=== PATIENT | female | born 1945 | race Caucasian/White ===

== ENCOUNTER → 2016-09-07 | Outpatient (CLI) | payer OTHER ==
[~2016-09-07] MED LIST: AMLO5TAB2 PO; ATEN50TA41 PO; CLON0.3T PO; CYCL-259 PO; DOXY100T PO; DULO60CA7 PO; OMNIPAQUE 350 MG/ML, 100ML BOTTLE ONE; ONDA4TAB10 PO; OXYC5TAB3 PO; SIMV20TA3 PO; VALS160T3 PO
== END | disposition home or self-care (01) ==
LOC: CFH 09:15
PROVIDERS: ATTEND Family Medicine
DX: K76.0 Fatty (change of) liver, not elsewhere classified (principal); R91.8 Other nonspecific abnormal finding of lung field; M51.36 Other intervertebral disc degeneration, lumbar region; Z90.49 Acquired absence of other specified parts of digestive tract; Z98.890 Other specified postprocedural states
CPT/HCPCS: 74177; Q9967

== ENCOUNTER → 2017-03-25 | Outpatient (CLI) | payer OTHER ==
[~2017-03-25] MED LIST changes: -CLON0.3T PO; +CLON0.3T47 PO; +HYDR-882 PO; +METO50TA4 PO; +OMEP-110 PO; -OMNIPAQUE 350 MG/ML, 100ML BOTTLE ONE; +VALS1TAB24 PO; +VILA40TA PO; +ZOLP5TAB6 PO
== END | disposition home or self-care (01) ==
LOC: CFH 10:52
PROVIDERS: ATTEND Family Medicine
DX: R22.9 Localized swelling, mass and lump, unspecified (principal)

== ENCOUNTER 2017-03-29 17:57 | Inpatient (IN) | payer OTHER, MEDICARE ==
[~2017-03-29] VITALS: Ht 152.4 cm; Wt 63.8 kg
[~2017-03-29 17:57] MED LIST changes: -HYDR-882 PO; -METO50TA4 PO; -OMEP-110 PO; -VALS1TAB24 PO; -VILA40TA PO; -ZOLP5TAB6 PO
[2017-03-29] MEDS ORDERED: SODIUM CHLORIDE FLUSH 10ML SYR IVF ONE (18:00)
[2017-03-29] MEDS ORDERED: SODIUM CHLORIDE 0.9% 1,000ML IVBOLUS ONE (18:00)
[2017-03-29 18:19] LABS: HEMATOCRIT 35.6 % (34.6-47.8)
[2017-03-29] MEDS ORDERED: PLEASE ENTER HEIGHT AND WEIGHT MC SCH (18:30)
[2017-03-29 18:32] LABS: ASPARTATE AMINO TRANSFERASE 21 U/L (15-37); BLOOD UREA NITROGEN 33 mg/dL (7-18)
[2017-03-29 18:37] LABS: IS PT STATUS REG ER OR PRE ER? YES
[2017-03-29] MEDS ORDERED: ZOLP5TAB6 PO (18:47)
[2017-03-29] MEDS ORDERED: VALS1TAB24 PO (18:47)
[2017-03-29] MEDS ORDERED: METO50TA4 PO (18:47)
[2017-03-29] MEDS ORDERED: VILA40TA PO (18:47)
[2017-03-29] MEDS ORDERED: OMEP-110 PO (18:47)
[2017-03-29] MEDS ORDERED: HYDR-882 PO (18:47)
[2017-03-29] MEDS ORDERED: SODIUM CHLORIDE 0.9%, 500ML IVBOLUS ONE (19:00)
[2017-03-29] MEDS ORDERED: SODIUM CHLORIDE 0.9% 1,000 ML IV SCH (19:54)
[2017-03-29] MEDS ORDERED: ACETAMINOPHEN 325 MG TABLET PO PRN (20:00)
[2017-03-29] MEDS ORDERED: DOCUSATE 100 MG CAPSULE PO PRN (20:00)
[2017-03-29] MEDS ORDERED: HYDROcodone/APAP 5/325 TABLET PO PRN (20:00)
[2017-03-29] MEDS ORDERED: MORPHINE SULFATE 4 MG/ML, 1ML IVPush PRN (20:00)
[2017-03-29] MEDS ORDERED: POLYETHYLENE GLYCOL 17 GM PACKET PO PRN (20:00)
[2017-03-29] MEDS ORDERED: ONDANSETRON 2MG/ML, 2ML IVPush PRN (20:00)
[2017-03-29] MEDS ORDERED: ZOLPIDEM 5MG TABLET PO SCH (21:00)
[2017-03-29] MEDS: SIMVASTATIN 20 MG TABLET PO SCH (21:00)
[2017-03-29 21:31] VITALS: BP 122/73
[2017-03-29] MEDS ORDERED: ENOXAPARIN 30 MG/0.3 ML SQ SCH (22:00)
[2017-03-30] VITALS (9 sets, daily range): BP systolic 111–209; BP diastolic 72–119
[2017-03-30 05:46] LABS: BLOOD UREA NITROGEN 26 mg/dL (7-18)
[2017-03-30 05:48] LABS: IS PT STATUS REG ER OR PRE ER? NO
[2017-03-30] MEDS: (Vilazodone Hydrochloride** (Viibryd**) 40 MG) HOMEMEDPO SCH (08:07)
[2017-03-30] MEDS ORDERED: SODIUM CHLORIDE 0.9% 1,000 ML IV SCH (09:00)
[2017-03-30] MEDS ORDERED: ZOLPIDEM 5MG TABLET PO PRN (09:00)
[2017-03-30] MEDS: SENNA/DOCUSATE TABLET PO SCH (09:28)
[2017-03-30] MEDS ORDERED: OMNIPAQUE 350 MG/ML, 100ML BOTTLE ONE (11:41)
[2017-03-30] MEDS ORDERED: GADOBUTROL 7.5 MMOL/7.5 ML PFS ONE (12:19)
[2017-03-30] MEDS: hydrALAzine 20 MG/ML, 1ML IV PRN ×3 (15:42→22:19)
[2017-03-30] MEDS: ENALAPRILAT 1.25 MG/ML, 2ML IV PRN (20:08)
[2017-03-30] MEDS: SIMVASTATIN 20 MG TABLET PO SCH (20:10)
[2017-03-30] MEDS ORDERED: ENOXAPARIN 40 MG/0.4 ML SQ SCH (22:00)
[2017-03-31 00:10] VITALS: BP 200/101
[2017-03-31] MEDS: ENALAPRILAT 1.25 MG/ML, 2ML IV PRN (01:19)
[2017-03-31 01:28] VITALS: BP 163/103
[2017-03-31] MEDS ORDERED: LABETALOL 5MG/ML, 20ML IVPush ONE (02:00)
[2017-03-31 03:07] VITALS: BP_SYST 142; BP_SYST 148; BP_DIAS 80
[2017-03-31 05:08] LABS: HEMATOCRIT 39.6 % (34.6-47.8); HEMOGLOBIN 13.6 g/dL (11.7-16.4); WHITE BLOOD COUNT 9.9 x10^3/uL (3.4-10)
[2017-03-31 05:24] LABS: BLOOD UREA NITROGEN 22 mg/dL (7-18)
[2017-03-31 07:15] VITALS: BP_SYST 115; BP_SYST 127; BP_SYST 128; BP_DIAS 70; BP_DIAS 76; BP_DIAS 86
[2017-03-31] MEDS: SENNA/DOCUSATE TABLET PO SCH (08:50)
[2017-03-31] MEDS: (Vilazodone Hydrochloride** (Viibryd**) 40 MG) HOMEMEDPO SCH (08:50)
== END 2017-03-31 13:25 | disposition home or self-care (01) | DRG 312 ==
LOC: ED 18:24 → EDIP 19:00 → SUATTDRO 19:51 → 4WST 21:28
PROVIDERS: ADMIT Family Medicine; ATTEND Family Medicine
DX: I95.2 Hypotension due to drugs (principal); N17.0 Acute kidney failure with tubular necrosis; E44.0 Moderate protein-calorie malnutrition; I48.91 Unspecified atrial fibrillation; G62.9 Polyneuropathy, unspecified; I50.30 Unspecified diastolic (congestive) heart failure; I11.0 Hypertensive heart disease with heart failure; E78.5 Hyperlipidemia, unspecified; E86.0 Dehydration; R55 Syncope and collapse; G89.29 Other chronic pain; I10 Essential (primary) hypertension; J44.9 Chronic obstructive pulmonary disease, unspecified; R00.1 Bradycardia, unspecified; I45.10 Unspecified right bundle-branch block; I77.1 Stricture of artery; Z66 Do not resuscitate; Z87.11 Personal history of peptic ulcer disease; Z88.8 Allergy status to other drugs, medicaments and biological substances
CPT/HCPCS: 36415; 71260; 72197; 74177; 80048; 80053; 81003; 82040; 83605; 83735; 84484; 85025; 86850; 86900; 93005; 93306; 93922; 96360; 96361; A9585; J1650; J2405; Q9967; J0360; J7030; J7040

== ENCOUNTER → 2018-05-25 | Outpatient (CLI) | payer OTHER, MEDICARE ==
[~2018-05-25] VITALS: Ht 152.4 cm; Wt 49.0 kg
[~2018-05-25] MED LIST changes: +AMLO-150 PO; -AMLO5TAB2 PO; +BACITRACIN 50,000 UNIT ONE; +BUPIVACAINE/PF-EPI 0.5% 1:200K ONE; +Bp med; +FENTANYL PF 250 MCG/5ML ONE; +HYDR-3653 PO; +LACTATED RINGERS 1,000 ML IV SCH; +METHYLENE BLUE 10 MG/ML 10ML ONE; +METO50TA4 PO; +MIDAZOLAM 1 MG/ML, 2ML ONE; +OMEP-110 PO; +THROMBIN 5,000 UNIT VIAL TP ONE; +VALS1TAB24 PO; +VILA40TA PO; +ZOLP5TAB6 PO
[2018-05-25 06:11] VITALS: BP 177/95
== END | disposition home or self-care (01) ==
LOC: CLISVCS 05-16 14:16 → ORIP 05:28 → UNDOADMIN 05:28 → EDSTATUS 09:30 → CLISVCS 14:16
PROVIDERS: ATTEND Neurological Surgery
DX: M47.12 Other spondylosis with myelopathy, cervical region (principal); E78.5 Hyperlipidemia, unspecified; G89.29 Other chronic pain; G62.9 Polyneuropathy, unspecified; I45.10 Unspecified right bundle-branch block; I11.0 Hypertensive heart disease with heart failure; I50.30 Unspecified diastolic (congestive) heart failure; I48.91 Unspecified atrial fibrillation; M19.90 Unspecified osteoarthritis, unspecified site; J44.9 Chronic obstructive pulmonary disease, unspecified; Z98.890 Other specified postprocedural states; Z90.49 Acquired absence of other specified parts of digestive tract; Z87.11 Personal history of peptic ulcer disease
CPT/HCPCS: 36415; 86850; 86900; J7120; J2250; J3010; Q9968

== ENCOUNTER → 2018-07-21 | Outpatient (CLI) | payer MEDICARE, OTHER ==
[~2018-07-21] MED LIST changes: -BACITRACIN 50,000 UNIT ONE; -BUPIVACAINE/PF-EPI 0.5% 1:200K ONE; -FENTANYL PF 250 MCG/5ML ONE; -LACTATED RINGERS 1,000 ML IV SCH; -METHYLENE BLUE 10 MG/ML 10ML ONE; -MIDAZOLAM 1 MG/ML, 2ML ONE; +REGADENOSON 0.4 MG/5 ML SYRINGE ONE; -THROMBIN 5,000 UNIT VIAL TP ONE
== END | disposition home or self-care (01) ==
LOC: CVU 10:05
PROVIDERS: ATTEND Internal Medicine Cardiovascular Disease
DX: I08.3 Combined rheumatic disorders of mitral, aortic and tricuspid valves (principal); I45.19 Other right bundle-branch block; E78.5 Hyperlipidemia, unspecified; I10 Essential (primary) hypertension; Z87.891 Personal history of nicotine dependence
CPT/HCPCS: 0399T; 78452; 93017; 93306; A9502; J2785